=== PATIENT | male | born 1975 | race Caucasian/White ===

== ENCOUNTER 2017-05-04 16:58 | Emergency (ER) | payer OTHER ==
[~2017-05-04] VITALS: Ht 190.5 cm; Wt 113.4 kg
--- NOTE | ~2017-05-04 | EKG ---
[facility] [place] [address] ELECTROCARDIOGRAM REPORT Name: MARILYN MCCAINDEANA NORIEGA [facility]: [id number] Admission: 05/04/17 Attend Phys: Discharge: Date of : 77 Report #: [id number] THIS REPORT FOR: //name// [facility] ED Test Date: 2017-05-04 Test Time: 17:42:20 Pat Name: ANIBAL MCCAIN Department: Room: Gender: M Cell Stripper Final: Andres CHRISTIAN : 1975 Requested By: Michaela Gilliland Order Number: [id number] MD: Measurements Intervals [place] Rate: 119 P: 15 ME: 134 QRS: -18 QRSD: 75 T: -3 QT: 303 QTc: 427 Interpretive Statements Sinus tachycardia Borderline left axis deviation Borderline T abnormalities, inferior leads No previous ECG available for comparison [email or web address] By: 41 41 Inés Conte MD /EPI
[~2017-05-04 16:58] MED LIST: ACCUNEB SO1.25 MG/1; ACCUNEB SO1.25 MG/1 INH; ADVAIR 250-501 EACH INH; ADVAIR HFA 230M12 GM INH; ADVAIR HFA115 MCG/21 INH; ATIVAN0.5 MG PO; ATIVAN1 MG PO; CIPRO500 MG PO; COMBIVENT INH; CYMBALTA30 MG PO; CYMBALTA60 MG PO; DUONEB 2.5-0.5 M3 ML INH; FLAGYL500 M1; FLOVENT HFA 1110 MCG INH; IBUPROFEN 600600 M1; IBUPROFEN 800800 MG PO; LISINOPRIL5 MG PO; NORCO 5-325 TA1 EACH PO; PENICILLIN V P500 MG PO; PERCOCET PO; PREDNISONE 20 M20 MG PO; PROVENTIL HFA6.7 G1; PROVENTIL HFA6.7 G1 INH; SEROQUEL300 MG PO; SINGULAIR 10 MG10 M1 PO; TIZANIDINE HCL4 MG PO; TRAMADOL 50 MG50 MG PO; VENTOLIN HFA 1818 GM INH; VICODIN 5-5001 EACH PO; ZOFRAN ODT4 MG PO
[2017-05-04 17:34] LABS: URINE BILIRUBIN NEGATIVE (Negative); URINE BLOOD NEGATIVE (Negative); URINE CLARITY CLEAR; URINE COLOR YELLOW; URINE GLUCOSE-RANDOM* NEGATIVE (Negative); URINE KETONES NEGATIVE (Negative); URINE LEUKOCYTES NEGATIVE (Negative); URINE NITRITE NEGATIVE (Negative); URINE PROTEIN (DIPSTICK) NEGATIVE (Negative); URINE SPECIFIC GRAVITY 1.015 (1.005-1.035); URINE UROBILINOGEN 0.2 E.U./dl (0.2-1.0)
[2017-05-04 18:15] LABS: ABSOLUTE NEUTROPHILS 6.1 thou/uL (1.4-8.2); BASOPHILS 0.3 % (0.0-2.0); EOSINOPHILS 5.5 % (0.0-3.0); HEMATOCRIT 37.2 % (42.0-52.0); HEMOGLOBIN 12.8 gm/dL (14.0-18.0); LYMPHOCYTES 17.1 % (24.0-44.0); MCH 30.4 pg (26.0-34.0); MCHC 34.5 g/dL (28.0-37.0); MCV 88.2 fL (80.0-100.0); MONOCYTES 7.8 % (1.0-8.0); PLATELET COUNT 296 thou/uL (150-400); POLYS 69.3 % (36.0-66.0); RBC 4.22 mil/uL (4.50-6.00); RDW 14.8 % (10.5-14.5); WBC 8.8 thou/uL (4.0-11.0)
[2017-05-04 18:23] LABS: CALCIUM 9.1 mg/dL (8.5-10.1); CREATININE 0.9 mg/dL (0.7-1.3)
[2017-05-04 18:29] LABS: ALBUMIN 3.1 g/dL (3.4-5.0); TOTAL BILIRUBIN 0.6 mg/dL (<0.1-1.0)
[2017-05-04] MEDS ORDERED: NORCO 5-325 TA1 EACH PO (19:35)
[2017-05-04] MEDS ORDERED: LEVAQUIN 750 M750 MG PO (19:35)
[2017-05-05] MEDS ORDERED: BUSPIRONE HCL10 MG PO (03:25)
[2017-05-05] MEDS ORDERED: XANAX 0.5 MG0.5 MG PO (03:26)
[2017-05-05] MEDS ORDERED: LYRICA 75 MG CA75 MG PO (03:27)
[2017-05-05] MEDS ORDERED: PRILOSEC 20 MG20 MG PO (03:28)
== END 2017-05-04 19:50 | disposition home or self-care (01) ==
LOC: ER 16:58
PROVIDERS: Nurse Practitioner Family
DX: M54.41 Lumbago with sciatica, right side (principal); J18.9 Pneumonia, unspecified organism; J45.909 Unspecified asthma, uncomplicated; F41.0 Panic disorder [episodic paroxysmal anxiety]; M41.9 Scoliosis, unspecified; M79.7 Fibromyalgia; Z88.1 Allergy status to other antibiotic agents; Z88.6 Allergy status to analgesic agent; Z91.010 Allergy to peanuts; Z87.891 Personal history of nicotine dependence

== ENCOUNTER 2017-05-05 01:02 | Inpatient (IN) | payer OTHER ==
[~2017-05-05] VITALS: Ht 185.4 cm; Wt 115.7 kg
[~2017-05-05 01:02] MED LIST changes: +LEVAQUIN 750 M750 MG PO
[2017-05-05 01:04] VITALS: BP 137/100
[2017-05-05 02:50] VITALS: BP 130/83
[2017-05-05] MEDS ORDERED: BUSPIRONE HCL10 MG PO (03:25)
[2017-05-05] MEDS ORDERED: XANAX 0.5 MG0.5 MG PO (03:26)
[2017-05-05] MEDS ORDERED: LYRICA 75 MG CA75 MG PO (03:27)
[2017-05-05] MEDS ORDERED: PRILOSEC 20 MG20 MG PO (03:28)
== END 2017-05-05 09:43 | disposition left against medical advice (07) | DRG 194 ==
LOC: ER 01:02 → 2N 01:59 → EROBS 01:59 → 2N 02:43
DX: J18.9 Pneumonia, unspecified organism (principal); R65.10 Systemic inflammatory response syndrome (SIRS) of non-infectious origin without acute organ dysfunction; F11.20 Opioid dependence, uncomplicated; K50.90 Crohn's disease, unspecified, without complications; G89.29 Other chronic pain; I10 Essential (primary) hypertension; J45.909 Unspecified asthma, uncomplicated; F41.9 Anxiety disorder, unspecified; M41.9 Scoliosis, unspecified; Z87.891 Personal history of nicotine dependence; Z88.8 Allergy status to other drugs, medicaments and biological substances; Z88.1 Allergy status to other antibiotic agents; Z91.010 Allergy to peanuts
CPT/HCPCS: 10081

== ENCOUNTER 2017-05-18 16:28 | Emergency (ER) | payer OTHER ==
[~2017-05-18] VITALS: Ht 185.4 cm; Wt 115.2 kg
--- NOTE | ~2017-05-18 | EKG ---
[place] [address] [facility] [place] [address] ELECTROCARDIOGRAM REPORT Name: MARILYN MCCAINDEANA NORIEGA Room #: REG [facility]#: [id number] Admission: 05/18/17 Attend Phys: Discharge: Date of : 77 Report #: [id number] THIS REPORT FOR: //name// [facility] ED Test Date: 2017-05-18 Test Time: 17:14:35 Pat Name: ANIBAL MCCAIN Department: Room: Gender: Sprigger: Andres CHRISTIAN : 1975 Requested By: Jaya Ayala Order Number: [id number] MD: Triston Zendejas Measurements Intervals [place] Rate: 119 P: 23 RI: 129 QRS: -15 QRSD: 79 T: 7 QT: 311 QTc: 438 Interpretive Statements Sinus tachycardia Borderline left axis deviation Compared to ECG 05/04/2017 17:42:20 T-wave abnormality no longer present Electronically Signed On 05-18-2017 22:27:06 [employer] by Triston Zendejas [email or web address] <ELECTRONICALLY SIGNED> By: Triston Zendejas MD 05/18/17 [id number] 1714 Triston Zendejas MD /LUCIUS
[~2017-05-18 16:28] MED LIST changes: +BUSPIRONE HCL10 MG PO; +LYRICA 75 MG CA75 MG PO; +PRILOSEC 20 MG20 MG PO; +XANAX 0.5 MG0.5 MG PO
[2017-05-18] MEDS ORDERED: PREDNISONE 20 M20 MG PO (17:33)
[2017-05-18] MEDS ORDERED: TIZANIDINE HCL4 MG PO (17:33)
== END 2017-05-18 18:05 | disposition home or self-care (01) ==
LOC: ER 16:28
DX: S39.012A Strain of muscle, fascia and tendon of lower back, initial encounter (principal); J45.909 Unspecified asthma, uncomplicated; F41.0 Panic disorder [episodic paroxysmal anxiety]; I10 Essential (primary) hypertension; K50.90 Crohn's disease, unspecified, without complications; M79.7 Fibromyalgia; G89.29 Other chronic pain; Z88.8 Allergy status to other drugs, medicaments and biological substances; Z88.1 Allergy status to other antibiotic agents; Z91.010 Allergy to peanuts; Z87.891 Personal history of nicotine dependence; X58.XXXA Exposure to other specified factors, initial encounter; Y93.89 Activity, other specified; Y92.89 Other specified places as the place of occurrence of the external cause; Y99.8 Other external cause status

== ENCOUNTER 2017-08-21 13:03 | Emergency (ER) | payer OTHER ==
[~2017-08-21] VITALS: Ht 185.4 cm; Wt 113.4 kg
[2017-08-21] MEDS ORDERED: NORCO 5-325 TA1 EACH PO (14:08)
[2017-08-21 14:30] VITALS: BP 107/71
== END 2017-08-21 14:54 | disposition home or self-care (01) ==
LOC: ER 13:03
DX: M25.561 Pain in right knee (principal); J45.909 Unspecified asthma, uncomplicated; F41.9 Anxiety disorder, unspecified; I10 Essential (primary) hypertension; M54.30 Sciatica, unspecified side; M41.9 Scoliosis, unspecified; M79.7 Fibromyalgia; K50.90 Crohn's disease, unspecified, without complications; Z87.891 Personal history of nicotine dependence; Z88.1 Allergy status to other antibiotic agents; Z88.8 Allergy status to other drugs, medicaments and biological substances